=== PATIENT | male | born 1965 | race Two or more races ===

== ENCOUNTER → 2016-09-20 | Emergency (ER) | payer SELFPAY ==
[~2016-09-20] VITALS: Ht 175.3 cm; Wt 65.8 kg
[~2016-09-20] MED LIST: LICE KILLING S118 ML TP
[2016-09-20 11:31] VITALS: BP 129/85
--- NOTE | 2016-09-22 14:53 | Emergency Room Report ---
History of Present Illness General Chief Complaint: Medical Clearance Source: Patient Present Illness HPI 51-year-old male presents ED for evaluation. Patient in police custody. Here for clearance. Patient is complaining of itchiness to his scalp for several days now. Denies any pain. Denies any fevers or chills. Denies any itchiness to his. No aggravating relieving factors. Denies any other associated symptoms Allergies: Coded Allergies: No Known Allergies (Unverified , 09/20/16) Patient History Past Medical History: none Past Surgical History: none Pertinent Family History: none Social History: Denies: alcohol use, drug use, smoking Immunizations: UTD Reviewed Nursing Documentation: PMH: Agreed, PSxH: Agreed Review of Systems All Other Systems: negative except mentioned in HPI Physical Exam Vital Signs Date Time Temp Pulse Resp B/P Pulse Ox O2 Delivery O2 Flow Rate FiO2 09/20/16 11:25 98.2 85 16 129/85 99 Room Air Sp02 EP Interpretation: reviewed, normal General Appearance: no apparent distress, alert, GCS 15, non-toxic Head: normocephalic Eyes: bilateral eye PERRL, bilateral eye normal inspection ENT: hearing grossly normal, normal pharynx, no angioedema, normal voice Neck: full range of motion, supple/symm/no masses Respiratory: chest non-tender, lungs clear, normal breath sounds, speaking full sentences Cardiovascular #1: regular rate, rhythm, no edema Gastrointestinal: normal bowel sounds, non tender, soft, non-distended, no guarding, no rebound Rectal: deferred Genitourinary: no CVA tenderness Musculoskeletal: normal inspection Neurologic: alert, oriented x3, responsive, motor strength/tone normal, sensory intact, speech normal Psychiatric: normal inspection Skin: other - lice in hair Lymphatic: normal inspection Medical Decision Making Diagnostic Impression: Primary Impression: Head lice Additional Impression: Medical clearance for incarceration ER Course Hospital Course 51-year-old male presents to ED for and retirement clearance. c/o itchy scalp Clinical course Patient placed on stretcher. Handcuffs. After initial history, physical exam reveals a middle aged male in no acute distress. There are multiple nits in the hair consistent with lice infestation patient will receive prescriptions for lice shampoo otherwise patient is medically stable for incarceration Diagnosis - medical clearance for incarceration , head lice stable and discharged into police custody with Rx Lice shampoo. f/u PMD. return to ED if symptoms recur/worsen Last Vital Signs Date Time Temp Pulse Resp B/P Pulse Ox O2 Delivery O2 Flow Rate FiO2 09/20/16 11:31 98.2 78 16 129/85 99 Room Air Status: improved Disposition: D/C TO LAW ENFORCEMENT IN CUST Condition: Stable Scripts Piperonyl Butoxide/Pyrethrins (LICE KILLING SHAMPOO) 118 Ml Shampoo 118 ML TP DAILY, #1 UNIT Prov: HASMUKH ANDREW M.D. 09/20/16 Departure Forms: Penitentiary Clearance Patient Instructions: Lice, Adult HASMUKH ANDREW M.D. Sep 22, 2016 14:53
== END ==
LOC: EMR 11:35
DX: B85.0 Pediculosis due to Pediculus humanus capitis (principal); L29.8 Other pruritus
CPT/HCPCS: 99283